=== PATIENT | female | born 1990 ===

== ENCOUNTER 2017-04-19 17:09 | Emergency (ER) | payer OTHER ==
[2017-04-19 17:47] LABS: RBC URINE 5 /hpf (0-3); URINE BACTERIA MOD (<OCC); URINE BILIRUBIN NEGATIVE (NEGATIVE); URINE BLOOD NEGATIVE (NEGATIVE); URINE COLOR Yellow (YELLOW); URINE GLUCOSE (UA) NORMAL (Normal); URINE KETONE NEGATIVE (NEGATIVE); URINE LEUKOCYTE ESTERASE 3+ Leu/uL (Negative); URINE PROTEIN NEGATIVE (NEGATIVE); URINE UROBILINOGEN NORMAL mg/dL (0.2-1.0); WBC URINE 59 /hpf (0-5)
[2017-04-19] MEDS ORDERED: Sodium Chloride 0.9% 1,000 ML IV ONE (18:02)
[2017-04-19] MEDS ORDERED: Sodium Chloride 0.9% 1,000 ML ONE (18:13)
--- NOTE | 2017-04-19 18:36 | C.PDOC ---
Time Seen by Provider: 04/19/17 17:47 Chief Complaint (Nursing): Abdominal Pain History Per: Patient Onset/Duration Of Symptoms: Days (4), Waxing/Waning Severity: Moderate Location Of Pain/Discomfort: Suprapubic Quality Of Discomfort: Unable To Describe, "Pain" Associated Symptoms: Diarrhea (resolved) Alleviating Factors: None Additional History Per: Prior Records Abnormal Vaginal Bleeding: No Past Medical History Reviewed: Historical Data, Nursing Documentation, Vital Signs Vital Signs: Last Vital Signs Temp 99 F 04/19/17 17:21 Pulse 94 H 04/19/17 17:21 Resp 20 04/19/17 17:21 BP 115/79 04/19/17 17:21 Pulse Ox 99 04/19/17 18:36 - Medical History PMH: Hypothyroidism Surgical History: No Surg Hx Family History: States: Unknown Family Hx - Social History Hx Tobacco Use: No Hx Alcohol Use: Yes Hx Substance Use: No - Immunization History Hx Tetanus Toxoid Vaccination: No Hx Influenza Vaccination: No Hx Pneumococcal Vaccination: No Review Of Systems Except As Marked, All Systems Reviewed And Found Negative. Constitutional: Negative for: Fever, Weakness Cardiovascular: Negative for: Chest Pain Respiratory: Negative for: Shortness of Breath Gastrointestinal: Negative for: Vomiting Genitourinary: Positive for: Pelvic Pain. Negative for: Dysuria, Vaginal Bleeding Musculoskeletal: Negative for: Neck Pain, Back Pain Skin: Negative for: Rash Neurological: Negative for: Weakness, Numbness Physical Exam - Physical Exam Appears: Non-toxic, No Acute Distress Skin: Normal Color, Warm, Dry, No Rash Head: Atraumatic, Normacephalic Eye(s): bilateral: Normal Inspection, PERRL, EOMI Neck: Normal ROM, Supple Cardiovascular: Rhythm Regular Respiratory: Normal Breath Sounds, No Accessory Muscle Use Gastrointestinal/Abdominal: Soft, Tenderness (suprapubic), No Guarding, No Rebound Back: No CVA Tenderness Extremity: Normal ROM Neurological/Psych: Oriented x3, Normal Motor, Normal Sensation ED Course And Treatment - Laboratory Results Result Diagrams: 04/19/17 18:43 04/19/17 18:43 Lab Interpretation: Abnormal Interpretation Of Abnormal: UTI Urine POC: Negative O2 Sat by Pulse Oximetry: 99 Pulse Ox Interpretation: Normal Disposition - Disposition Disposition Time: 19:00 Condition: FAIR - Clinical Impression Clinical Impression: Urinary tract infection, Pelvic pain Physician Patient Turnover Patient Signed Over To: Reinier Gutierrez Handoff Comments: to f/up pelvic US and reassess/dispo pt
[2017-04-19 18:47] LABS: BASO % 0.3 % (0.0-2.0); EOS # 0.1 K/uL (0.0-0.7); EOS % 0.7 % (0.0-4.0); HEMATOCRIT 36.3 % (34.0-47.0); LYMPH # 1.7 K/uL (1.0-4.3); LYMPH % 23.5 % (20.0-40.0); MEAN CORPUSCULAR HEMOGLOBIN 30.8 pg (27.0-31.0); MEAN CORPUSCULAR HGB CONC 33.1 g/dL (33.0-37.0); MEAN PLATELET VOLUME 7.5 fL (7.2-11.7); MONO # 0.7 K/uL (0.0-0.8); RED CELL DISTRIBUTION WIDTH 12.2 % (11.5-14.5); WHITE BLOOD COUNT 7.3 K/uL (4.8-10.8)
[2017-04-19 18:55] LABS: CHLORIDE 106 mmol/L (98-107); POTASSIUM 3.6 mmol/L (3.6-5.2); SODIUM 140 mmol/L (132-148)
[2017-04-19 18:57] LABS: AST/SGOT 18 U/L (14-36); BILIRUBIN,TOTAL 0.5 mg/dL (0.2-1.3); CARBON DIOXIDE 22 mmol/L (22-30); GFR AFRICAN-AMERICAN > 60
[2017-04-19 18:58] LABS: ALB/GLOB RATIO 1.4 (1.0-2.1); ALKALINE PHOSPHATASE 45 U/L (38-126); ALT/SGPT 36 U/L (9-52); BLOOD UREA NITROGEN 12 mg/dL (7-17); CALCIUM 8.3 mg/dl (8.6-10.4); GLUCOSE,RANDOM 79 mg/dL (65-105); TOTAL PROTEIN 7.3 g/dL (6.3-8.3)
[2017-04-19 19:36] VITALS: O2SAT 100
[2017-04-19 21:26] VITALS: BP 127/76; PULSE 93; RESP 20; TEMP 98.6
--- NOTE | 2017-04-20 09:57 | US ---
HISTORY: Pelvic Pain COMPARISON: None available. TECHNIQUE: Transabdominal and transvaginal FINDINGS: UTERUS: Measures 7.9 x 5.6 x 6.3 cm. Normal in size and appearance. No fibroid or other mass lesion seen. ENDOMETRIUM: Measures 10 mm in diameter. Unremarkable. CERVIX: No cervical abnormality identified. RIGHT OVARY: Measures 2.3 x 1.6 x 2.4 cm. No solid mass. Normal flow. LEFT OVARY: Measures 3.8 x 2.1 x 3.4 cm. No solid mass. Normal flow. FREE FLUID: Minimal in cul-de-sac OTHER FINDINGS: None. IMPRESSION: Unremarkable pelvic ultrasound.
== END 2017-04-19 21:32 | disposition home or self-care (01) ==
LOC: C.ER 17:09
DX: N39.0 Urinary tract infection, site not specified (principal); R10.2 Pelvic and perineal pain
CPT/HCPCS: 76830; 76856; 80053; 81001; 84702; 84703; 85025; 87086; 96360; 99285; J7040

== ENCOUNTER 2018-03-27 11:15 | Emergency (ER) | payer OTHER ==
[2018-03-27 11:30] VITALS: BMI 25.4
[2018-03-27 11:32] VITALS: TEMP 98.5
--- NOTE | 2018-03-27 13:22 | C.PDOC ---
History Of Present Illness 27 year old female presents to the emergency department with complaints of pain to her right wrist since 2 days ago. Patient states that the pain worsens when she moves or tries to hold an object. Otherwise she denies any weakness or numbness. Time Seen by Provider: 03/27/18 11:35 Chief Complaint (Nursing): Finger,Hand,&Wrist History Per: Patient History/Exam Limitations: no limitations Onset/Duration Of Symptoms: Days Current Symptoms Are (Timing): Still Present Past Medical History Reviewed: Historical Data, Nursing Documentation, Vital Signs Vital Signs: Last Vital Signs Temp 98.5 F 03/27/18 11:29 Pulse 78 03/27/18 13:28 Resp 16 03/27/18 13:28 BP 108/81 03/27/18 13:28 Pulse Ox 100 03/27/18 15:41 - Medical History PMH: Hyperthyroidism, Hypothyroidism Family History: States: No Known Family Hx - Social History Hx Tobacco Use: No Hx Alcohol Use: No Hx Substance Use: No - Immunization History Hx Tetanus Toxoid Vaccination: No Hx Influenza Vaccination: No Hx Pneumococcal Vaccination: No Review Of Systems Except As Marked, All Systems Reviewed And Found Negative. Constitutional: Negative for: Fever, Chills Cardiovascular: Negative for: Chest Pain Respiratory: Negative for: Shortness of Breath Gastrointestinal: Negative for: Nausea, Vomiting Musculoskeletal: Positive for: Other (Right wrist pain) Neurological: Negative for: Weakness, Numbness Physical Exam - Physical Exam Appears: Non-toxic, No Acute Distress Skin: Warm, Dry, No Rash Head: Atraumatic, Normacephalic Eye(s): bilateral: Normal Inspection Oral Mucosa: Moist Neck: Supple Extremity: Tenderness (volar wrist), No Deformity, No Swelling, Other (strong radial and ulnar pulses) Neurological/Psych: Oriented x3, Normal Speech, Normal Cognition Gait: Steady ED Course And Treatment O2 Sat by Pulse Oximetry: 100 (RA) Pulse Ox Interpretation: Normal - Other Rad Right Wrist X-ray X-Ray: Read By Radiologist Interpretation: Findings: No evidence for acute displaced fracture or dislocation. Impression: Negative acute. If pain persists, consider MRI. Progress Note: Right wrist x-ray ordered. Motrin administered. Patient was given cockup wrist splint and referred to an orthopedist. Disposition - Disposition Referrals: Conrad Beaulieu III, MD [Staff Provider] - Miguel Schumacher MD [Staff Provider] - Disposition: HOME/ ROUTINE Disposition Time: 13:21 Condition: STABLE Additional Instructions: Follow up with Orthopedist/hand specialsit within 1-2 days. Return to ED if feel worse. Prescriptions: Ibuprofen [Motrin Tab] 600 mg PO Q8 #30 tab Instructions: Carpal Tunnel Exercises Forms: [employer] ([place]) - Clinical Impression Clinical Impression: Wrist pain - PA / BLOOD DONOR UNIT ASSISTANT / Resident Statement MD/DO has reviewed & agrees with the documentation as recorded. - Scribe Statement The provider has reviewed the documentation as recorded by the Scribe All medical record entries made by the Scribe were at my direction and personally dictated by me. I have reviewed the chart and agree that the record accurately reflects my personal performance of the history, physical exam, medical decision making, and the department course for this patient. I have also personally directed, reviewed, and agree with the discharge instructions and disposition.
--- NOTE | 2018-03-27 13:23 | RAD ---
Right wrist three views History: Pain and swelling. Comparison: None available. Findings: No evidence for acute displaced fracture or dislocation. Impression: Negative acute. If pain persists, consider MRI.
[2018-03-27 13:29] VITALS: BP 108/81; PULSE 78; RESP 16
[2018-03-27 15:01] VITALS: O2SAT 100
== END 2018-03-27 13:28 | disposition home or self-care (01) ==
LOC: C.ER 11:15
DX: M25.531 Pain in right wrist (principal)